=== PATIENT | female | born 1990 ===

== ENCOUNTER 2018-09-25 17:05 | Emergency (ER) | payer OTHER ==
[2018-09-25 17:10] VITALS: RESP 16
[2018-09-25] MEDS ORDERED: Lactated Ringer's 1,000 ML IV STA (17:24)
[2018-09-25] MEDS ORDERED: Dextrose 5%/0.9% NS 1,000 ML IV SCH (17:30)
--- NOTE | 2018-09-25 17:41 | ED PDOC ---
HPI: Abdomen Time Seen by Provider: 09/25/18 17:12 Chief Complaint (Nursing): GI Problem Chief Complaint (Provider): GI Problem History Per: Patient History/Exam Limitations: no limitations Onset/Duration Of Symptoms: Hrs Current Symptoms Are (Timing): Still Present Additional Complaint(s): 28 y/o female with no significant PMHx presents to the ED for evaluation of int ractable vomiting since 9 AM this morning. Patient reports she is unable to tolerate any foods or fluid. Patient describes vomiting as yellow and associated with mild abdominal cramping, severe non-vertiginous dizziness and headache. Patient notes of having drank two beers last night. Patient states she has never had this kind of reaction with alcohol before. Patient notes her last meal consisting of a hot dog at 8:30 PM last night. Otherwise, patient denies drugs, sick contact and recent travel. PMD: no provider Past Medical History Reviewed: Historical Data, Nursing Documentation, Vital Signs Vital Signs: Last Vital Signs Temp 98.0 F 09/25/18 17:07 Pulse 74 09/25/18 17:07 Resp 16 09/25/18 17:07 BP 110/76 09/25/18 17:07 Pulse Ox 100 09/25/18 17:07 - Medical History PMH: No Chronic Diseases - Surgical History Surgical History: Appendectomy - Family History Family History: States: No Known Family Hx - Social History Current smoker - smoking cessation education provided: No Alcohol: Social - Home Medications Home Medications: Ambulatory Orders Medication Instructions Recorded Meclizine HCl 50 mg PO BID PRN #30 tablet 09/25/18 Ondansetron ODT [Zofran ODT] 1 odt PO Q6 PRN #20 odt 09/25/18 - Allergies Allergies/Adverse Reactions: Allergies Allergy/AdvReac Type Severity Reaction Status Date / Time Penicillins Allergy RASH Verified 09/25/18 17:07 Review of Systems ROS Statement: Except As Marked, All Systems Reviewed And Found Negative (as per HPI) Gastrointestinal: Positive for: Vomiting, Abdominal Pain Neurological: Positive for: Headache, Dizziness Physical Exam - Reviewed Nursing Documentation Reviewed: Yes Vital Signs Reviewed: Yes - Physical Exam Appears: Positive for: Non-toxic, No Acute Distress (but tired) Head Exam: Positive for: ATRAUMATIC, NORMOCEPHALIC Skin: Positive for: Warm, Dry Eye Exam: Positive for: EOMI, PERRL ENT: Positive for: Other (tachy mucous membranes) Neck: Positive for: Painless ROM, Supple Cardiovascular/Chest: Positive for: Regular Rate, Rhythm. Negative for: Murmur Respiratory: Positive for: Normal Breath Sounds. Negative for: Respiratory Distress Gastrointestinal/Abdominal: Positive for: Soft. Negative for: Tenderness, Mass, Distended, Guarding, Rebound Back: Positive for: Normal Inspection. Negative for: Decreased ROM Extremity: Positive for: Normal ROM. Negative for: Deformity Lymphatic: Negative for: Adenopathy Neurological/Psych: Positive for: Awake, Alert. Negative for: Motor/Sensory Deficits - Laboratory Results Result Diagrams: 09/25/18 17:50 09/25/18 17:50 - ECG O2 Sat by Pulse Oximetry: 100 (RA) Pulse Ox Interpretation: Normal Medical Decision Making Medical Decision Making: Time: 1723 Impression: Intractable Vomiting Differentials include but not limited to gastritis, viral illness, dehydration and electrolyte abnormality Plan: -- Alcohol Serum -- CMP -- HCG, Qualitative Serum -- Lipase -- Magnesium -- Phosphorus -- ED Urine -- ED Urine Dipstick -- CBC with Differentials -- Dextrose 5%/0.9% NS IV 100 mls/hr -- Lactated Ringer's IV 1000 mls/hr -- Zofran Inj 8 mg IV -- IV Insertion Time: 2029 -- On re-evaluation, patient no longer vomiting. Patient currently complaining of a headache and dizziness. Meclizine and Tylenol ordered for symptom relief. -- Meclizine 50 mg PO -- Tylenol 975 mg PO 2200 Pt feeling better. Stable for dc. Scribe Attestation: Documented by Batool Mcmahon, acting as a scribe Anand Raines MD. Provider Scribe Attestation: All medical record entries made by the Scribe were at my direction and personally dictated by me. I have reviewed the chart and agree that the record accurately reflects my personal performance of the history, physical exam, medical decision making, and the department course for this patient. I have also personally directed, reviewed, and agree with the discharge instructions and disposition. Disposition - Clinical Impression Clinical Impression: Vomiting Counseled Patient/Family Regarding: Studies Performed, Diagnosis, Need For F ollowup, Rx Given - Disposition Referrals: formerly [facility] [Outside] (FOLLOWUP IN 2-3 DAYS WITH YOUR DOCTOR OR CLINIC) Disposition: Routine/Home Disposition Time: 22:00 Condition: IMPROVED Prescriptions: Meclizine HCl 50 mg PO BID PRN #30 tablet PRN Reason: Dizziness Ondansetron ODT [Zofran ODT] 1 odt PO Q6 PRN #20 odt PRN Reason: Nausea/Vomiting Instructions: Nausea and Vomiting, Adult (DC), Vertigo (a Type of Dizziness) (DC) Forms: [employer] ED School/Work Excuse
[2018-09-25 18:06] LABS: BASO # 0.1 K/uL (0.0-0.2); BASO % 0.6 % (0.0-2.0); EOS % 0.3 % (0.0-4.0); LYMPH # 1.6 K/uL (1.0-4.3); LYMPH % 16.8 % (20.0-40.0); MEAN CELL VOLUME 80.4 fl (81.0-99.0); MEAN CORPUSCULAR HEMOGLOBIN 26.2 pg (27.0-31.0); MEAN CORPUSCULAR HGB CONC 32.6 g/dL (33.0-37.0); MEAN PLATELET VOLUME 8.2 fl (7.2-11.7); MONO # 0.4 K/uL (0.0-0.8); NEUT # 7.7 K/uL (1.8-7.0); NEUT % 78.3 % (50.0-75.0); NRBC % 0.1 % (0.0-0.0); RBC 4.59 Mil/uL (3.80-5.20); RED CELL DISTRIBUTION WIDTH 16.4 % (11.5-14.5); WHITE BLOOD COUNT 9.8 K/uL (4.8-10.8)
[2018-09-25 18:22] LABS: ALB/GLOB RATIO 1.2 (1.0-2.1); ALBUMIN 4.9 g/dL (3.5-5.0); ALT/SGPT 15 U/L (9-52); AST/SGOT 55 U/L (14-36); BLOOD UREA NITROGEN 11 mg/dl (7-17); CALCIUM 9.5 mg/dL (8.4-10.2); GFR NON-AFRICAN AMERICAN > 60
[2018-09-25 18:25] LABS: LIPASE 84 U/L (23-300)
[2018-09-25 22:39] VITALS: BP 112/72; PULSE 76; TEMP 98.6
[2018-09-25 22:40] VITALS: O2SAT 100
== END 2018-09-25 22:51 | disposition home or self-care (01) ==
LOC: H.ER 17:05
DX: R11.10 Vomiting, unspecified (principal); Z88.0 Allergy status to penicillin
CPT/HCPCS: 80053; 80320; 83690; 83735; 84100; 84703; 85025; 96360; 99284; J2405; J7042; J7120